=== PATIENT | male | born 1955 | race Caucasian/White ===

== ENCOUNTER 2018-01-05 10:59 | Day surgery (SDC) | payer OTHER ==
[~2018-01-05] VITALS: Ht 170.2 cm; Wt 165.6 kg
[2018-01-05] MEDS ORDERED: MIDAZOLAM 2 MG/2 ML VIAL ONE (13:50)
[2018-01-05] MEDS ORDERED: fentaNYL 0.05 MG/ML VIAL ONE (13:50)
[2018-01-05] MEDS ORDERED: LIDOCAINE 2% 100 MG/5 ML UJET TP ONE (13:51)
== END 2018-01-05 15:09 | disposition home or self-care (01) ==
LOC: MDS 10:59 → MMU 11:00 → MDS 15:09
PROVIDERS: ATTEND Internal Medicine Gastroenterology
DX: Z12.11 Encounter for screening for malignant neoplasm of colon (principal); K64.8 Other hemorrhoids; K57.30 Diverticulosis of large intestine without perforation or abscess without bleeding; I10 Essential (primary) hypertension
CPT/HCPCS: 45378; J3010; J7030; J2250